=== PATIENT | female | born 1945 | race Caucasian/White ===

== ENCOUNTER 2018-01-04 17:56 | Emergency (ER) | payer OTHER ==
[~2018-01-04] VITALS: Ht 172.7 cm; Wt 50.6 kg
[2018-01-04 18:28] VITALS: Ht 172.7 cm; Wt 50.6 kg
[2018-01-04 20:10] VITALS: BP 116/73
== END 2018-01-04 20:10 | disposition left against medical advice (07) ==
LOC: ED 17:56
DX: Z53.21 Procedure and treatment not carried out due to patient leaving prior to being seen by health care provider (principal)